=== PATIENT | female | born 1950 | race Caucasian/White ===

== ENCOUNTER → 2019-08-09 15:23 | Outpatient (CLI) | payer MEDICARE, SELFPAY ==
--- NOTE | ~2019-08-09 | XR_ITS ---
XR foot LT 2V DATE: 08/09/2019 15:32 INDICATION: Left foot pain TECHNIQUE: 4 views COMPARISON: None FINDINGS: Mild to moderate plantar calcaneal enthesopathy. No fracture or dislocation, periosteal reaction or bone destruction. IMPRESSION: Plantar calcaneal enthesopathy Reviewed, dictated and finalized at location B. PER [employer]IPPER
== END ==
PROVIDERS: PCP Family Medicine; Visit Provider Family Medicine
DX: M77.32 Calcaneal spur, left foot (principal)
CPT/HCPCS: 73620

== ENCOUNTER → 2021-04-20 08:13 | Outpatient (CLI) | payer MEDICARE, SELFPAY ==
[2021-04-20 18:29] LABS: SARS-CoV-2 RNA PCR Negative
== END ==
PROVIDERS: PCP Family Medicine; Visit Provider Family Medicine
DX: J02.9 Acute pharyngitis, unspecified (principal); R09.81 Nasal congestion; R50.9 Fever, unspecified; R05.9 Cough, unspecified; Z20.822 Contact with and (suspected) exposure to COVID-19
CPT/HCPCS: C9803; U0003; U0005

== ENCOUNTER → 2021-04-26 13:56 | Outpatient (CLI) | payer MEDICARE, SELFPAY ==
--- NOTE | ~2021-04-26 | XR_ITS ---
XR chest 2V 04/26/2021 14:26 Indication: Cough Procedure: 2 view chest Comparison: No prior studies for comparison. Findings: There are left basilar infiltrates which may represent atelectasis or developing pneumonia. Heart size normal. Right lung clear. No significant effusion, edema or pneumothorax. No acute osseou s abnormality. Impression: 1: Left basilar infiltrates may represent atelectasis or developing pneumonia. Reviewed, dictated and finalized at location A. MASTER Impression: 1: Left basilar infiltrates may represent atelectasis or developing pneumonia.
== END ==
PROVIDERS: PCP Family Medicine; Visit Provider Physician Assistant
DX: R05.9 Cough, unspecified (principal); R91.8 Other nonspecific abnormal finding of lung field
CPT/HCPCS: 71046

== ENCOUNTER → 2021-05-18 14:24 | Outpatient (CLI) | payer MEDICARE, SELFPAY ==
--- NOTE | ~2021-05-18 | XR_ITS ---
EXAMINATION: XR knee LT min 4V DATE: 05/18/2021 14:38 INDICATION: Left knee pain. TECHNIQUE: 4 views of left knee on 5 radiographs including standing views were obtained. COMPARISON: Left knee radiograph 11/23/15 FINDINGS: There is lateral subluxation of patella. No fracture. There is mild osteoarthritis of media l and lateral compartments and severe osteoarthritis of patellofemoral compartment. 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 No knee joint effusion. IMPRESSION: 1. Severe left knee osteoarthritis. Reviewed, dictated and finalized at location A. [facility]
== END ==
PROVIDERS: PCP Family Medicine; Visit Provider Family Medicine
DX: M25.562 Pain in left knee (principal); M17.12 Unilateral primary osteoarthritis, left knee
CPT/HCPCS: 73564

== ENCOUNTER → 2021-05-24 10:12 | Outpatient (NON) | payer MEDICARE, SELFPAY ==
[2020-03-05 20:08] LABS: SARS-CoV-2 RNA PCR Negative
== END | disposition home or self-care (01) ==
PROVIDERS: PCP Family Medicine; Visit Provider Family Medicine
DX: Z20.828 Contact with and (suspected) exposure to other viral communicable diseases (principal)
CPT/HCPCS: 87635; C9803; U0003

== ENCOUNTER → 2021-08-17 02:16 | Outpatient (CLI) | payer MEDICARE, SELFPAY ==
[2021-08-17 12:38] LABS: SARS-CoV-2 RNA PCR Negative
== END ==
PROVIDERS: PCP Family Medicine; Visit Provider Family Medicine
DX: R68.89 Other general symptoms and signs (principal); Z20.822 Contact with and (suspected) exposure to COVID-19
CPT/HCPCS: C9803; U0003; U0005

== ENCOUNTER → 2021-10-09 10:30 | Outpatient (CLI) | payer MEDICARE, SELFPAY ==
--- NOTE | ~2021-10-09 | XR_ITS ---
EXAM: XR foot LT min 3V HISTORY: M79.672 - Pain in left foot COMPARISON: 08/09/2019. FINDINGS: Normal mineralization. No fracture or dislocation. No lytic or blastic lesion. Joint space s maintained. No erosion or periosteal change. Plantar soft tissue swelling at the level of the metat arsal heads. IMPRESSION: No acute osseous finding in the left foot. No radiopaque foreign body. Soft tissue swelling over the ball of foot. Reviewed, dictated and finalized at location K. IMPRESSION: No acute osseous finding in the left foot. No radiopaque foreign body. Soft tis zheng swelling over the ball of foot.
== END ==
PROVIDERS: PCP Family Medicine; Visit Provider Physician Assistant
DX: M79.672 Pain in left foot (principal)
CPT/HCPCS: 73630

== ENCOUNTER 2021-11-18 14:41 | Outpatient (CLI) | payer MEDICARE, SELFPAY ==
--- NOTE | ~2021-11-18 | DEXA_ITS ---
Bone Density Report Name: ROSARIO LIMA Age: 71 Sex: Female Ethnicity: White Date of : 1950 Indication: osteopenia; cancer; Referring Provider: NILA TYLER Study: Bone densitometry was performed. Exam Date: November 18, 2021 Accession number: [id number] Bone Density: Region BMD T-score Z-score Classification AP Spine(L1-L4) 0.795 -2.3 -0.2 Osteopenia Femoral Neck (Left) 0.645 -1.8 -0.1 Osteopenia Total Hip (Left) 0.850 -0.8 0.7 Normal Femoral Neck (Right) 0.659 -1.7 0.1 Osteopenia Total Hip (Right) 0.858 -0.7 0.8 Normal Total Hip Mean 0.854 -0.8 0.8 Normal World Health Organization criteria for BMD impression classify patients as: Normal (T-score at or above -1.0), Osteopenia (T-score between -1.0 and -2.5), or Osteoporosis (T-score at or below -2.5). 10-year Fracture Risk(1): Major Osteoporotic Fracture 10% Hip Fracture 1.8% Reported Risk Factors: [place] (), Neck BMD=0.645, BMI=22.0 (1) FRAX(R) Version 3.08. Fracture probability calculated for an untreated patient. Fracture probability may be lower if the patient has received treatment. Previous Exams: Region Exam Age BMD T-score BMD Change BMD Change Date g/cm2 vs Baseline vs Previous AP Spine (L1-L4) 11/18/2021 71 0.795 -2.3 -0.075 (-8.6%) -0.009 (-1.1%) 06/10/2019 69 0.804 -2.2 -0.066 (-7.6%) -0.029 (-3.5%) 09/19/2016 66 0.834 -1.9 -0.037 (-4.2%) -0.037 (-4.2%) 03/28/2014 64 0.870 -1.6 Total Hip(Left) 11/18/2021 71 0.850 -0.8 -0.023 (-2.6%) 0.004 (0.5%) 06/10/2019 69 0.845 -0.8 -0.027 (-3.1%) 0.008 (1.0%) 09/19/2016 66 0.837 -0.9 -0.035 (-4.0%) -0.035 (-4.0%) 03/28/2014 64 0.873 -0.6 Total Hip(Right) 11/18/2021 71 0.858 -0.7 -0.037 (-4.1%) 0.032 (3.8%)* 06/10/2019 69 0.826 -0.9 -0.068 (-7.6%) -0.016 (-1.9%) 09/19/2016 66 0.842 -0.8 -0.053 (-5.9%) -0.053 (-5.9%) 03/28/2014 64 0.895 -0.4 *Denotes significance at 95% confidence level, LSC for AP Spine = 0.022 g/cm2, LSC for Total Hip = 0.027 g/cm2 Clinical Information Provided by Patient: Has used the following medications: Vitamin D Has the following medical conditions: Cancer Patient maximum height was 68 Menopause Age: 52 Drinks caffeinated beverages Onset of menses at age 15 Number of children 2 Impression: The patient has low bone mass, based on the Total Spine T-score. The patient has an estimated ten-
== END 2021-11-18 14:42 | disposition home or self-care (01) ==
LOC: ANHIMG 14:43
PROVIDERS: PCP Family Medicine; Visit Provider Family Medicine
DX: Z78.0 Asymptomatic menopausal state (principal); M85.88 Other specified disorders of bone density and structure, other site; M85.851 Other specified disorders of bone density and structure, right thigh; M85.852 Other specified disorders of bone density and structure, left thigh
CPT/HCPCS: 77080

== ENCOUNTER 2022-04-11 14:19 | Outpatient (CLI) | payer MEDICARE, SELFPAY ==
[2022-04-11 15:34] LABS: SARS-CoV-2 RNA PCR Positive
== END 2022-04-11 14:20 | disposition home or self-care (01) ==
PROVIDERS: PCP Family Medicine; Visit Provider Family Medicine
DX: U07.1 COVID-19 (principal)
CPT/HCPCS: U0003; U0005

== ENCOUNTER → 2023-03-20 11:11 | Outpatient (CLI) | payer MEDICARE, SELFPAY ==
--- NOTE | ~2023-03-20 | XR_ITS ---
XR chest 2V DATE: 03/20/2023 11:19 INDICATION: Cough. History of breast cancer 8 years ago TECHNIQUE: 2 views COMPARISON: 04/26/2021 2 view chest FINDINGS: The right breast is smaller than the left, likely due to partial mastectomy for history of breast cancer. Normal heart size. No hilar or mediastinal enlargement. No pulmonary infiltrate or con solidation, pleural effusion or pulmonary vascular congestion or pneumothorax is detected. There is mild levoscoliosis of the thoracic spine. Osteopenia. IMPRESSION: No active cardiopulmonary disease Reviewed, dictated and finalized at location B.
== END ==
PROVIDERS: PCP Family Medicine; Visit Provider Nurse Practitioner
DX: R05.9 Cough, unspecified (principal); Z85.3 Personal history of malignant neoplasm of breast
CPT/HCPCS: 71046

== ENCOUNTER 2023-12-04 14:05 | Outpatient (CLI) | payer MEDICARE, SELFPAY ==
--- NOTE | ~2023-12-04 | XR_ITS ---
XR chest 2V 12/04/2023 14:15 Indication: Cough for one year Procedure: 2 view chest Comparison: 03/20/2023 Findings: Heart size normal. No focal air space disease, pulmonary edema, pleural effusion or suspect ed pneumothorax. Impression: 1: No acute cardiopulmonary disease. Reviewed, dictated and finalized at location B. Impression: 1: No acute cardiopulmonary disease.
== END 2023-12-04 14:06 ==
LOC: GOSHIMG 14:06
PROVIDERS: PCP Family Medicine; Visit Provider Family Medicine
DX: R05.3 Chronic cough (principal)
CPT/HCPCS: 71046